=== PATIENT | male | born 1980 | race Two or more races ===

== ENCOUNTER 2017-06-09 15:12 | Emergency (ER) | payer OTHER ==
[2017-06-09] MEDS ORDERED: ACETAMINOPHEN 500 MG TABLET PO ONE (17:15)
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
[2017-06-09 19:42] VITALS: BP 131/81
== END 2017-06-09 19:42 | disposition home or self-care (01) ==
LOC: ER 15:12 → EEVIPCON 15:12 → ER 19:42
DX: S02.81XA Fracture of other specified skull and facial bones, right side, initial encounter for closed fracture (principal); S02.2XXA Fracture of nasal bones, initial encounter for closed fracture; Y04.0XXA Assault by unarmed brawl or fight, initial encounter; Y93.89 Activity, other specified; Y92.89 Other specified places as the place of occurrence of the external cause; Y99.8 Other external cause status
CPT/HCPCS: 70450; 70486; 99284-25